=== PATIENT | male | born 1970 | race Hispanic/Latino ===

== ENCOUNTER 2018-09-17 04:12 | Observation (INO) | payer BC ==
--- NOTE | 2018-09-17 04:38 | EDPHYS ---
Physician Documentation [facility] Name: Fantasma Cobb Age: 47 yrs Sex: Male : 1970 Arrival Date: 09/17/2018 Time: 04:15 Bed 5 Private MD: Moisés Menjivar ED Physician Lawrence Hall HPI: 09/17 04:32 This 47 yrs old Male presents to ER via Ambulatory with complaints of High bob Blood Sugar, Chest Tightness, Headache, LT side of body hurt. 04:32 The patient or guardian reports hyperglycemia. bob Historical: - Allergies: 04:37 No Known Allergies; fc - Home Meds: 04:37 amlodipine 5 mg tab 1 tab once daily [Active]; aspirin 81 mg Oral TbEC 1 tab once daily fc [Active]; lisinopril 10 mg Oral tab 1 tab once daily [Active]; Victoza 2-Javier 0.6 mg/0.1 mL (18 mg/3 mL) subcutaneous pnij 0.3 mL once daily [Active]; Tresiba FlexTouch U-100 100 unit/mL (3 mL) subcutaneous inpn daily [Active]; - PMHx: 04:37 Kidney stones; Diabetes - IDDM; Hypertension; Bacterial Pneumonia; fc - PSHx: 04:37 Cholecystectomy; top left lung lobectomy; Lithotripsy; Renal Stents; fc - Immunization history:: Last tetanus immunization: unknown, Flu vaccine is not up to date. - Social history:: Smoking status: Patient/guardian denies using tobacco, Patient/guardian denies using alcohol, street drugs. - Ebola Screening: : Patient negative for fever greater than or equal to 101.5 degrees Fahrenheit, and additional compatible Ebola Virus Disease symptoms Patient denies exposure to infectious person Patient denies travel to an Ebola-affected area in the 21 days before illness onset. ROS: 04:33 Constitutional: Negative for fever, chills, and weight loss, Eyes: Negative for injury, bob pain, redness, and discharge, ENT: Negative for injury, pain, and discharge, Neck: Negative for injury, pain, and swelling, Respiratory: Negative for shortness of breath, cough, wheezing, and pleuritic chest pain, Abdomen/GI: Negative for abdominal pain, nausea, vomiting, diarrhea, and constipation, Back: Negative for injury and pain, : Negative for injury, bleeding, discharge, and swelling, MS/Extremity: Negative for injury and deformity, Skin: Negative for injury, rash, and discoloration, Psych: Negative for depression, anxiety, suicide ideation, homicidal ideation, and hallucinations, Allergy/Immunology: Negative for hives, rash, and allergies, Endocrine: Negative for neck swelling, polydipsia, polyuria, polyphagia, and marked weight changes, Hematologic/Lymphatic: Negative for swollen nodes, abnormal bleeding, and unusual bruising. 04:33 Cardiovascular: Positive for chest pain. 04:33 Neuro: Positive for headache. Exam: 04:33 Constitutional: This is a well developed, well nourished patient who is awake, alert, bob and in no acute distress. Head/Face: Normocephalic, atraumatic. Eyes: Pupils equal round and reactive to light, extra-ocular motions intact. Lids and lashes normal. Conjunctiva and sclera are non-icteric and not injected. Cornea within normal limits. Periorbital areas with no swelling, redness, or edema. ENT: Nares patent. No nasal discharge, no septal abnormalities noted. Tympanic membranes are normal and external auditory canals are clear. Oropharynx with no redness, swelling, or masses, exudates, or evidence of obstruction, uvula midline. Mucous membranes moist. Neck: Trachea midline, no thyromegaly or masses palpated, and no cervical lymphadenopathy. Supple, full range of motion without nuchal rigidity, or vertebral point tenderness. No Meningismus. Chest/axilla: Normal chest wall appearance and motion. Nontender with no deformity. No lesions are appreciated. Cardiovascular: Regular rate and rhythm with a normal S1 and S2. No gallops, murmurs, or rubs. Normal PMI, no JVD. No pulse deficits. Respiratory: Lungs have equal breath sounds bilaterally, clear to auscultation and percussion. No rales, rhonchi or wheezes noted. No increased work of breathing, no retractions or nasal flaring. Abdomen/GI: Soft, non-tender, with normal bowel sounds. No distension or tympany. No guarding or rebound. No evidence of tenderness throughout. Back: No spinal tenderness. No costovertebral tenderness. Full range of motion. Male : Normal genitalia with no discharge or lesions. Skin: Warm, dry with normal turgor. Normal color with no rashes, no lesions, and no evidence of cellulitis. MS/ Extremity: Pulses equal, no cyanosis. Neurovascular intact. Full, normal range of motion. Neuro: Awake and alert, GCS 15, oriented to person, place, time, and situation. Cranial nerves II-XII grossly intact. Motor strength 5/5 in all extremities. Sensory grossly intact. Cerebellar exam normal. Normal gait. Psych: Awake, alert, with orientation to person, place and time. Behavior, mood, and affect are within normal limits. Vital Signs: 04:15 BP 170 / 97; Pulse 97; Resp 18; Temp 98.7(O); Pulse Ox 94% on R/A; Weight 99.79 kg (R); Height 5 ft. 11 in. (180.34 cm) (R); Pain 10/10; 05:50 BP 149 / 90; Pulse 80; Resp 18; Pulse Ox 98% on R/A; ea 07:43 BP 159 / 93; Pulse 81; Resp 18; Temp 98.2; Pulse Ox 97% on R/A; ph 04:15 Body Mass Index 30.68 (99.79 kg, 180.34 cm) NIH Stroke Scale Scores: 04:33 NIHSS Score: 0 bob MDM: 04:24 Patient medically screened. bob 04:35 Data reviewed: vital signs, nurses notes, lab test result(s), EKG, radiologic studies, [facility] CT scan, plain films. 09/17 04:31 Order name: Basic Metabolic Panel; Complete Time: 05:41 [facility] 09/17 04:31 Order name: CBC with Diff; Complete Time: 05:41 [facility] 09/17 04:31 Order name: LFT's; Complete Time: 05:41 [facility] 09/17 04:31 Order name: Magnesium; Complete Time: 05:41 [facility] 09/17 04:31 Order name: NT PRO-BNP; Complete Time: 05:41 [facility] 09/17 04:31 Order name: PT-INR; Complete Time: 05:41 [facility] 09/17 04:31 Order name: Troponin (emerg Dept Use Only); Complete Time: 05:41 [facility] 09/17 04:31 Order name: XRAY Chest (1 view) [facility] 09/17 04:31 Order name: Lipase; Complete Time: 05:41 [facility] 09/17 04:31 Order name: CT Head Brain wo Cont [facility] 09/17 06:10 Order name: Urine Dipstick--Ancillary (enter results) 09/17 06:18 Order name: Urine Dipstick-Ancillary; Complete Time: 06:43 [facility] 09/17 04:31 Order name: EKG; Complete Time: 04:32 [facility] 09/17 04:31 Order name: Cardiac monitoring; Complete Time: 04:45 [facility] 09/17 04:31 Order name: EKG - Nurse/Tech; Complete Time: 04:45 [facility] 09/17 04:31 Order name: IV Saline Lock; Complete Time: 04:45 [facility] 09/17 04:31 Order name: Labs collected and sent; Complete Time: 04:45 [facility] 09/17 04:31 Order name: O2 Per Protocol; Complete Time: 04:45 [facility] 09/17 04:31 Order name: O2 Sat Monitoring; Complete Time: 04:45 [facility] 09/17 04:31 Order name: Urine Dipstick-Ancillary (obtain specimen); Complete Time: 06:08 [facility] 09/17 04:43 Order name: CONS Physician Consult EDMS Administered Medications: 04:50 Drug: NS 0.9% 1000 ml Route: IV; Rate: 1 bolus; Site: right antecubital; ea 06:11 Follow up: Response: No adverse reaction; IV Status: Completed infusion; IV Intake: ea 1000ml 04:50 Drug: Zofran 4 mg Route: IVP; Site: right antecubital; ea 06:07 Follow up: Response: No adverse reaction; Marked relief of symptoms ea 04:50 Drug: Lovenox 1 mg/kg Route: Sub-Q; Site: left lower abdomen; ea 06:07 Follow up: Response: No adverse reaction ea 04:55 Drug: morphine 4 mg Route: IVP; Site: right antecubital; ea 06:07 Follow up: Response: No adverse reaction; Pain is decreased ea 04:58 Drug: Aspirin 162 mg Route: PO; ea 06:06 Follow up: Response: No adverse reaction ea 05:00 Drug: Insulin Regular Human 10 units {Co-Signature: [email or web address] (Neeraj Thurman RN).} Route: ea Sub-Q; Site: right upper arm; 06:53 Follow up: Response: No adverse reaction ea 06:39 Drug: Tylenol 1000 mg Route: PO; ea 06:55 Follow up: Response: No adverse reaction; Pain is decreased ea 07:49 Drug: Rocephin - (cefTRIAXone) 1 grams Route: IVPB; Infused Over: 30 mins; Site: right ph antecubital; 07:50 Follow up: Response: No adverse reaction; IV Status: Completed infusion ph Point of Care Testing: Blood Glucose: 06:53 Blood Glucose: 264 mg/dL; ea Ranges: Critical Glucose Levels:Adult <50 mg/dl or >400 mg/dl <40 mg/dl or >180 mg/dl Disposition: 09/17/18 04:37 Hospitalization ordered by Rosa Sanchez for Observation. Preliminary diagnosis are Essential (primary) hypertension, Type 1 diabetes mellitus, Other chest pain, Chronic sinusitis. - Bed requested for Telemetry/MedSurg (observation). - Status is Observation. ph - Condition is Stable. - Problem is new. - Symptoms have improved. UTI on Admission? No NIH Stroke Scale - NIH Stroke Score Date: 09/17/2018 Time: 04:33 Total Score = 0 1a. Level of Consciousness (LOC) - 0(Alert) 1b. Level of Consciousness (LOC) (Year \T\ Age) - 0(Both) 1c. LOC Commands (Open \T\ Closes Eyes/Director Of Blood) - 0(Both) 2. Best Gaze (Lateral Gaze Paresis) - 0(Normal) 3. Visual Field Loss - 0(No visual loss) 4. Facial Palsy - 0(Normal) 5a. Left Arm: Motor (10-second hold) - 0(No drift) 5b. Right Arm: Motor (10-second hold) - 0(No drift) 6a. Left Leg: Motor (5-second hold - always test supine) - 0(No drift) 6b. Right Leg: Motor (5-second hold - always test supine) - 0(No drift) 7. Limb Ataxia (finger/nose \T\ heel/burton - test with eyes open) - 0(Absent) 8. Sensory Loss (pinprick arms/legs/face) - 0(Normal) 9. Best Language: Aphasia (description/naming/reading) - 0(No aphasia) 10. Dysarthria (speech clarity - read or repeat words) - 0(Normal) 11. Extinction and Inattention (visual/tactile/auditory/spatial/personal) - 0(No abnormality) Initials: bob Signatures: Dispatcher [employer] EDEliza Martinez RN Lawrence Mandujano MD MD cha Chretien, Felicia RN Jaclyn De La Cruz RN RN ph Antunez, Elena RN PHI Thurman RN [email or web address] Corrections: (The following items were deleted from the chart) 05:57 04:37 Hospitalization Ordered by Rosa Sanchez MD for Observation. Preliminary diagnosis is Essential (primary) hypertension; Type 1 diabetes mellitus; Other chest pain. Bed requested for Telemetry/MedSurg (observation). Status is Observation. Condition is Stable. Problem is new. Symptoms have improved. UTI on Admission? No. bob 06:46 05:57 09/17/2018 04:37 Hospitalization Ordered by Rosa Sanchez MD for bob Observation. Preliminary diagnosis is Essential (primary) hypertension; Type 1 diabetes mellitus; Other chest pain. Bed requested for Telemetry/MedSurg (observation). Status is Observation. Condition is Stable. Problem is new. Symptoms have improved. UTI on Admission? No. kl 08:06 06:46 09/17/2018 04:37 Hospitalization Ordered by Rosa Sanchez MD for Observation. Preliminary diagnosis is Essential (primary) hypertension; Type 1 diabetes mellitus; Other chest pain; Chronic sinusitis. Bed requested for Telemetry/MedSurg (observation). Status is Observation. Condition is Stable. Problem is new. Symptoms have improved. UTI on Admission? No. bob
--- NOTE | 2018-09-17 04:38 | ER ---
Nurse's Notes [facility] Name: Fantasma Cobb Age: 47 yrs Sex: Male : 1970 Arrival Date: 09/17/2018 Time: 04:15 Bed 5 Private MD: Moisés Menjivar Diagnosis: Essential (primary) hypertension;Type 1 diabetes mellitus;Other chest pain;Chronic sinusitis Presentation: 09/17 04:15 Presenting complaint: Patient states: that he woke up with sever pain to his entire body along with headache, chest tightness and high blood sugar of 393. States that now the pain is mostly on the left side. Denies any shortness of breath. Transition of care: patient was not received from another setting of care. Onset of symptoms was September 17, 2018 at 02:30. Risk Assessment: Do you want to hurt yourself or someone else? Patient reports no desire to harm self or others. Initial Sepsis Screen: Does the patient meet any 2 criteria? HR > 90 bpm. Yes Does the patient have a suspected source of infection? No. Patient's initial sepsis screen is negative. Care prior to arrival: None. 04:15 Method Of Arrival: Ambulatory 04:15 Acuity: INGRID 3 fc Historical: - Allergies: 04:37 No Known Allergies; fc - Home Meds: 04:37 amlodipine 5 mg tab 1 tab once daily [Active]; aspirin 81 mg Oral TbEC 1 tab once daily fc [Active]; lisinopril 10 mg Oral tab 1 tab once daily [Active]; Victoza 2-Javier 0.6 mg/0.1 mL (18 mg/3 mL) subcutaneous pnij 0.3 mL once daily [Active]; Tresiba FlexTouch U-100 100 unit/mL (3 mL) subcutaneous inpn daily [Active]; - PMHx: 04:37 Kidney stones; Diabetes - IDDM; Hypertension; Bacterial Pneumonia; fc - PSHx: 04:37 Cholecystectomy; top left lung lobectomy; Lithotripsy; Renal Stents; fc - Immunization history:: Last tetanus immunization: unknown, Flu vaccine is not up to date. - Social history:: Smoking status: Patient/guardian denies using tobacco, Patient/guardian denies using alcohol, street drugs. - Ebola Screening: : Patient negative for fever greater than or equal to 101.5 degrees Fahrenheit, and additional compatible Ebola Virus Disease symptoms Patient denies exposure to infectious person Patient denies travel to an Ebola-affected area in the 21 days before illness onset. Screenin:32 Abuse screen: Denies threats or abuse. Nutritional screening: No deficits noted. fc Tuberculosis screening: No symptoms or risk factors identified. Fall Risk None identified. Assessment: 04:50 General: Appears uncomfortable, Behavior is calm, cooperative, appropriate for age. ea Pain: Complains of pain in chest Pain currently is 9 out of 10 on a pain scale. Quality of pain is described as aching, Pain began 1 hour ago. Neuro: Level of Consciousness is awake, alert, obeys commands, Oriented to person, place, time, situation. Cardiovascular: Heart tones S1 S2 present Patient's skin is warm and dry. Respiratory: Airway is patent Respiratory effort is even, unlabored, Respiratory pattern is regular, symmetrical, Breath sounds are clear bilaterally. Derm: Skin is pink, warm \T\ dry. 04:50 Pain: Complains of pain in headache Pain does not radiate. Pain currently is 9 out of ea 10 on a pain scale. 05:50 Reassessment: Patient and/or family updated on plan of care and expected duration. Pain ea level reassessed. Patient is alert, oriented x 3, equal unlabored respirations, skin warm/dry/pink. 07:00 Reassessment: Patient appears in no apparent distress at this time. Patient and/or ph family updated on plan of care and expected duration. Pain level reassessed. Patient is alert, oriented x 3, equal unlabored respirations, skin warm/dry/pink. 08:00 Reassessment: Patient appears in no apparent distress at this time. Patient and/or ph family updated on plan of care and expected duration. Pain level reassessed. Patient is alert, oriented x 3, equal unlabored respirations, skin warm/dry/pink. Pt reports hat headache is improving, report called to 4th floor, pt taken to room via wheelchair. Vital Signs: 04:15 BP 170 / 97; Pulse 97; Resp 18; Temp 98.7(O); Pulse Ox 94% on R/A; Weight 99.79 kg (R); fc Height 5 ft. 11 in. (180.34 cm) (R); Pain 10/10; 05:50 BP 149 / 90; Pulse 80; Resp 18; Pulse Ox 98% on R/A; ea 07:43 BP 159 / 93; Pulse 81; Resp 18; Temp 98.2; Pulse Ox 97% on R/A; ph 04:15 Body Mass Index 30.68 (99.79 kg, 180.34 cm) fc NIH Stroke Scale Scores: 04:33 NIHSS Score: 0 [facility] ED Course: 04:15 Patient arrived in ED. es 04:15 Moisés Menjivar MD is Private Physician. es 04:15 Arm band placed on Patient placed in an exam room, on a stretcher, on cardiac care unit nurse, fc on pulse oximetry. 04:15 Patient has correct armband on for positive identification. Placed in gown. Bed in low fc position. Call light in reach. satellite project site monitor on. Pulse ox on. NIBP on. 04:15 No provider procedures requiring assistance completed. Patient maintains SpO2 fc saturation greater than 95% on room air. 04:24 Lawrence Hall MD is Attending Physician. bob 04:30 Inserted saline lock: 20 gauge in right antecubital area, using aseptic technique. ea Blood collected. 04:31 Triage completed. fc 04:35 Rosa Sanchez MD is Hospitalizing Provider. bob 04:44 Angelika Felix RN is Primary Nurse. ea 05:[address] via wheelchair. kw1 05:23 X-ray completed. Portable x-ray completed in exam room. Patient tolerated procedure kw well. 05:25 Notified ED physician of a critical lab result(s). Glucose 426. fc 05:26 CT completed. Patient tolerated procedure well. Patient moved back from CT. kw1 06:03 Patient admitted, IV remains in place. ea Administered Medications: 04:50 Drug: NS 0.9% 1000 ml Route: IV; Rate: 1 bolus; Site: right antecubital; ea 06:11 Follow up: Response: No adverse reaction; IV Status: Completed infusion; IV Intake: ea 1000ml 04:50 Drug: Zofran 4 mg Route: IVP; Site: right antecubital; ea 06:07 Follow up: Response: No adverse reaction; Marked relief of symptoms ea 04:50 Drug: Lovenox 1 mg/kg Route: Sub-Q; Site: left lower abdomen; ea 06:07 Follow up: Response: No adverse reaction ea 04:55 Drug: morphine 4 mg Route: IVP; Site: right antecubital; ea 06:07 Follow up: Response: No adverse reaction; Pain is decreased ea 04:58 Drug: Aspirin 162 mg Route: PO; ea 06:06 Follow up: Response: No adverse reaction ea 05:00 Drug: Insulin Regular Human 10 units {Co-Signature: jd3 (Neeraj Thurman RN).} Route: ea Sub-Q; Site: right upper arm; 06:53 Follow up: Response: No adverse reaction ea 06:39 Drug: Tylenol 1000 mg Route: PO; ea 06:55 Follow up: Response: No adverse reaction; Pain is decreased ea 07:49 Drug: Rocephin - (cefTRIAXone) 1 grams Route: IVPB; Infused Over: 30 mins; Site: right ph antecubital; 07:50 Follow up: Response: No adverse reaction; IV Status: Completed infusion ph Point of Care Testing: Blood Glucose: 06:53 Blood Glucose: 264 mg/dL; ea Ranges: Intake: 06:11 IV: 1000ml; Total: 1000ml. ea Outcome: 04:37 Decision to Hospitalize by Provider. bob 06:03 Instructed on the need for admit. ea 07:51 Condition: stable ph 08:00 Admitted to Tele accompanied by tech, via wheelchair, room 413, with chart. ph 08:06 Patient left the ED. ph NIH Stroke Scale - NIH Stroke Score Date: 09/17/2018 Time: 04:33 Total Score = 0 1a. Level of Consciousness (LOC) - 0(Alert) 1b. Level of Consciousness (LOC) (Year \T\ Age) - 0(Both) 1c. LOC Commands (Open \T\ Closes Eyes/[employer]) - 0(Both) 2. Best Gaze (Lateral Gaze Paresis) - 0(Normal) 3. Visual Field Loss - 0(No visual loss) 4. Facial Palsy - 0(Normal) 5a. Left Arm: Motor (10-second hold) - 0(No drift) 5b. Right Arm: Motor (10-second hold) - 0(No drift) 6a. Left Leg: Motor (5-second hold - always test supine) - 0(No drift) 6b. Right Leg: Motor (5-second hold - always test supine) - 0(No drift) 7. Limb Ataxia (finger/nose \T\ heel/burton - test with eyes open) - 0(Absent) 8. Sensory Loss (pinprick arms/legs/face) - 0(Normal) 9. Best Language: Aphasia (description/naming/reading) - 0(No aphasia) 10. Dysarthria (speech clarity - read or repeat words) - 0(Normal) 11. Extinction and Inattention (visual/tactile/auditory/spatial/personal) - 0(No abnormality) Initials: bob Signatures: Lawrence Hall MD MD cha Salyer, Edna es Chretien, Felicia, RN RN Bree Shaw Patricia, RN RN Angelika Felix RN Eliza Spain ea kw Neeraj Thurman RN jd3
[2018-09-17] MEDS ORDERED: D50W 25 GM/50 ML SYRINGE IV PRN (04:42)
[2018-09-17] MEDS ORDERED: GLUCAGON 1 MG/VIAL IM PRN (04:42)
[2018-09-17] MEDS ORDERED: ASPIRIN 81 MG CHEWABLE TABLET ONE (04:55)
[2018-09-17] MEDS ORDERED: ENOXAPARIN 100 MG/ML SYR SQ ONE (04:56)
[2018-09-17] MEDS ORDERED: ONDANSETRON 4 MG/2 ML VIAL ONE (04:56)
[2018-09-17] MEDS ORDERED: NA CHLORIDE 0.9% 1,000 ML ONE (04:56)
[2018-09-17] MEDS ORDERED: MORPHINE 4 MG/ML SYR ONE (04:56)
[2018-09-17 04:57] LABS: Absolute Lymphocytes (CBC) 2.7 K/uL (0.7-4.9); Absolute Monocytes 0.5 K/uL (0.1-1.3); Absolute Neutrophil 4.1 K/uL (1.8-8.0); Basophils % 0.6 % (0-1.3); Eosinophils % 3.2 % (0-4.4); Hematocrit 49.2 % (39.6-49.0); Lymphocytes % 35.5 % (15.3-44.8); MCH 28.8 pg (27.0-35.0); MCV 84.6 fL (80-100); MPV 10.7 fL (7.6-11.3); Monocytes % 7.1 % (3.3-12.3); Protime INR 0.99; RBC Red Blood Cell Count 5.82 M/uL (4.33-5.43)
[2018-09-17] MEDS ORDERED: INSULIN -REGULAR HUMAN 50 UNIT/0.5 ML ML ONE (05:07)
[2018-09-17 05:24] LABS: ALT/SGPT 36 U/L (12-78); AST/SGOT 22 U/L (15-37); Albumin 3.8 g/dL (3.4-5.0); Alkaline Phosphatase 112 U/L (45-117); BUN Blood Urea Nitrogen 15 mg/dL (7-18); Bicarbonate 23 mmol/L (21-32); Bilirubin Direct < 0.1 mg/dL (0-0.2); Bilirubin Total 0.4 mg/dL (0.2-1.0); Lipase 151 U/L (73-393); Magnesium 2.1 mg/dL (1.8-2.4); NT PRO-BNP 8 pg/mL (<125); Potassium 4.1 mmol/L (3.5-5.1); Protein, Total 7.9 g/dL (6.4-8.2); Sodium Level 135 mmol/L (136-145); Troponin (Emerg Dept Use Only) < 0.02 ng/mL (0.0-0.045)
[2018-09-17 05:25] LABS: Glucose Level 426 mg/dL (74-106)
[2018-09-17] MEDS ORDERED: MORPHINE 4 MG/ML SYR IV PRN (06:02)
[2018-09-17] MEDS ORDERED: ALPRAZOLAM 0.25 MG TABLET PO PRN (06:02)
[2018-09-17 06:18] LABS: Urine Blood NEGATIVE (NEG); Urine Glucose 2+ (NEG); Urine Protein NEGATIVE (NEG)
[2018-09-17] MEDS ORDERED: ACETAMINOPHEN 500 MG TAB ONE (06:41)
[2018-09-17] MEDS ORDERED: CEFTRIAXONE/SWI 1gm 1 GM/10 ML SYR ONE (07:53)
--- NOTE | 2018-09-17 08:38 | P.HP ---
Certification for Inpatient Patient admitted to: Observation With expected LOS: <2 Midnights Patient will require the following post-hospital care: None Practitioner: I am a practitioner with admitting privileges, knowledge of patient current condition, hospital course, and medical plan of care. Services: Services provided to patient in accordance with Admission requirements found in Title 42 Section 412.3 of the Code of Federal Regulations Patient History Date of Service: 09/17/18 Reason for admission: Chest pain rule out acute coronary syndrome/poorly- controlled diabetes History of Present Illness: Patient is a 47-year-old gentleman who came into the hospital after waking up with diffuse pain. He states he was hurting all over but mainly in the sternal region. His blood sugars a been poorly controlled for many months. Patient is in the process of getting an insulin pump. His blood sugars have remained in the 3-400 range. He states that his A1c was greater than 14. It does not appear that he takes care of himself whatsoever. Patient will be admitted to the hospital to be ruled out for an acute coronary syndrome. He denies any shortness of breath at this time. He denies any vomiting but he does have some nausea. There was no diaphoresis. Patient will be admitted to be ruled out for acute coronary syndrome. Allergies No Known Drug Allergies Allergy (Verified 02/25/17 14:34) Unknown No Known Allergies Allergy (Uncoded 02/25/17 14:43) Unknown Home Medications: Aspirin 81 mg PO DAILY #0 tab.chew 09/12/12 Lisinopril [Prinivil*] 20 mg PO DAILY WITH BREAKFAST 08/17/13 Rosuvastatin [Crestor*] 20 mg PO BEDTIME 08/17/13 Allopurinol 1 tab PO DAILY 02/25/17 Amlodipine Besylate 1 tab PO DAILY 02/25/17 Dulaglutide [Trulicity] 1.5 mg SQ SEECOM 02/25/17 Insulin Lispro Protamin/Lispro [Humalog Mix 75-25 Kwikpen] 30 units PO LUNCH Insulin Lispro Protamin/Lispro [Humalog Mix 75-25 Kwikpen] 60 units SQ DAILY AT SUPPER 02/25/17 Insulin Lispro Protamin/Lispro [Humalog Mix 75-25 Kwikpen] 60 units SQ DAILY WITH BREAKFAST 02/25/17 Metformin ER [Glucophage ER*] 1,000 mg PO BID 02/25/17 Potassium Citrate [Potassium Citrate ER] 1 tab PO BID 02/25/17 Ondansetron [Zofran] 4 mg PO Q6H PRN #20 tab 02/26/17 - Past Medical/Surgical History Diabetic: Yes -: DM-NIDDM -: HTN -: HYPERLIPIDEMIA -: KIDNEY STONES -: CHOLECYSTECTOMY -: TOP LEFT LUNG LOBECTOMY -: LITHOTRIPSY -: RENAL STENT - Family History Mother Medical History: Diabetes Father Medical History: Diabetes - Social History Alcohol use: Yes CD- Drugs: No Caffeine use: Yes Review of Systems 10-point ROS is otherwise unremarkable Physical Examination - Vital Signs Temperature: 98.2 F Blood Pressure: 159/93 Pulse: 81 Respirations: 18 Pulse Ox (%): 96 - Physical Exam General: Alert, In no apparent distress, Oriented x3 HEENT: Atraumatic, PERRLA, Mucous membr. moist/pink, EOMI, Sclerae nonicteric Neck: Supple, 2+ carotid pulse no bruit, No LAD, Without JVD or thyroid abnormality Respiratory: Clear to auscultation bilaterally, Normal air movement Cardiovascular: Regular rate/rhythm, Normal S1 S2, No murmurs Gastrointestinal: Normal bowel sounds, Soft and benign, Non-distended, No tenderness Musculoskeletal: No clubbing, No swelling, No contractures, No tenderness Integumentary: No rashes Neurological: Normal gait, Normal speech, Normal strength at 5/5 x4 extr, Normal tone, Sensation intact, Cranial nerves 3-12 intact, Normal affect Lymphatics: No axilla or inguinal lymphadenopathy - Studies Laboratory Data (last 24 hrs) 09/17/18 04:35: PT 11.7, INR 0.99 09/17/18 04:35: WBC 7.7, Hgb 16.8, Hct 49.2 H, Plt Count 246 09/17/18 04:35: Sodium 135 L, Potassium 4.1, BUN 15, Creatinine 1.10, Glucose 426 H*, Magnesium 2.1, Total Bilirubin 0.4, AST 22, ALT 36, Alkaline Phosphatase 112, Lipase 151 Assessment & Plan - Problems (Diagnosis) (1) Chest pain, rule out acute myocardial infarction Current Visit: Yes Status: Acute (2) Poorly controlled diabetes mellitus Current Visit: Yes Status: Acute (3) Generalized pain Current Visit: Yes Status: Acute (4) HTN (hypertension) Current Visit: No Status: Acute Qualifiers: Hypertension type: essential hypertension Qualified Code(s): I10 - Essential (primary) hypertension - Plan 1. Serial troponins and EKG 2. Cardiology consultation 3. Echocardiogram and further diagnostic studies per Cardiology 4. Anti-platelet therapy, anti coagulation, beta-imani, statin, and O2 as needed 5. IV morphine for pain 6. Check hemoglobin A1c and strict blood sugar control 7. IV hydration 8. GI and DVT prophylaxis Discharge Plan: Home Plan to discharge in: Greater than 2 days - Advance Directives Does patient have a Living Will: No Does patient have a Durable POA for Healthcare: No - Code Status/Comfort Care Code Status Assessed: Yes Code Status: Full Code Critical Care: No Time Spent Managing PTS Care (In Minutes): 50
--- NOTE | 2018-09-17 08:48 | RAD REPORT ---
EXAM DESCRIPTION: Maryam Single View09/17/2018 5:27 am CLINICAL HISTORY: Chest pain COMPARISON: February 2017 FINDINGS: The lungs appear clear of acute infiltrate. The heart is normal size IMPRESSION: No acute abnormalities displayed
--- NOTE | 2018-09-17 08:59 | RAD REPORT ---
EXAM DESCRIPTION: CT - Head Brain Wo Cont - 09/17/2018 5:57 am CLINICAL HISTORY: Headache COMPARISON: None. TECHNIQUE: Computed axial tomography of the head was obtained. IV contrast was not requested.Prelimi nary report generated by virtual radiologic a review prior to dictation All CT scans are performed using dose optimization technique as appropriate and may include automated exposure control or mA/KV adjustment according to patient size. FINDINGS: An intracranial bleed is not seen . The ventricles are normal in caliber. No extra-axial fluid collection is noted. Fluid within the sinuses/ mastoids is not seen. Mild mucoperiosteal thickening involves the left maxi llary and ethmoid sinus Increased density within the right posterior scalp could be related to inflammation or trauma IMPRESSION: No acute intracranial abnormality is seen. If patient's symptoms persist MRI of the bra in would be recommended. Chronic sinusitis
[2018-09-17] MEDS ORDERED: ASPIRIN EC 81 MG TAB PO SCH (09:00)
[2018-09-17] MEDS: ALLOPURINOL 100 MG TAB PO SCH (09:00)
[2018-09-17] MEDS: ENOXAPARIN 40 MG/0.4 ML SQ SCH (09:00)
[2018-09-17] MEDS: INSULIN -REGULAR HUMAN 50 UNIT/0.5 ML ML SQ SCH ×4 (09:27→21:02)
[2018-09-17] MEDS: HUMALOG MIX 75/25 100 UNITS/ML SQ SCH ×2 (09:27→12:00)
[2018-09-17] MEDS: AMLODIPINE 2.5 MG TAB PO SCH (09:29)
[2018-09-17] MEDS: METOPROLOL TAR 50 MG TAB PO SCH ×2 (09:32→20:55)
[2018-09-17 09:51] VITALS: BMI 30.7
[2018-09-17] MEDS: ACETAMINOPHEN 500 MG TAB PO PRN (11:37)
--- NOTE | 2018-09-17 12:33 | ECHO ---
HEIGHT: 5 ft 11 in WEIGHT: 220 lb 0 oz DATE OF STUDY: 09/17/[address]: Rosa Sanchez MD 2-DIMENSIONAL: YES M.MODE: YES DOPPLER: YES COLOR FLOW: YES TDS: PORTABLE: DEFINITY: BUBBLE STUDY: DIAGNOSIS: CHEST PAIN, RULE OUT ACUTE CORANRY SYNDROME CARDIAC HISTORY: CATHERIZATION: NO SURGERY: NO PROSTHETIC VALVE: NO PACEMAKER: NO MEASUREMENTS (cm) DIASTOLIC (NORMALS) SYSTOLIC (NORMALS) IVSd 0.9 (0.6-1.2) LA Diam 3.4 (1.9-4.0) LVEF 63% LVIDd 3.8 (3.5-5.7) LVIDs 2.5 (2.0-3.5) %FS 33% LVPWd 1.1 (0.6-1.2) Ao Diam 2.9 (2.0-3.7) 2 DIMENSIONAL ASSESSMENT: RIGHT ATRIUM: NORMAL LEFT ATRIUM: NORMAL RIGHT VENTRICLE: NORMAL LEFT VENTRICLE: NORMAL TRICUSPID VALVE: NORMAL MITRAL VALVE: NORMAL PULMONIC VALVE: NORMAL AORTIC VALVE: NORMAL PERICARDIAL EFFUSION: NONE AORTIC ROOT: NORMAL LEFT VENTRICULAR WALL MOTION: NORMAL DOPPLER/COLOR FLOW: NORMAL COMMENTS: NORMAL 2-DIMENSIONAL ECHOCARDIOGRAM WITH DOPPLER. TECHNOLOGIST: MIRNA BARRIOS
--- NOTE | 2018-09-17 13:33 | EKG ---
Test Date: 2018-09-17 Test Time: 04:26:44 Home Health Clinical Liaison: ROMEL MEASUREMENT RESULTS: Intervals: Rate: 98 TN: 144 QRSD: 84 QT: 350 QTc: 446 [place]: P: 41 TN: 144 QRS: 2 T: 4 INTERPRETIVE STATEMENTS: Normal sinus rhythm Inferior infarct, age undetermined Abnormal ECG Electronically Signed On 09-17-18 13:33:06 PRODUCT SAFETY CONSULTANT by Zander Tidwell
--- NOTE | 2018-09-17 13:34 | TREADMILL ---
70% H.R.: 120 85% H.R.: 145 90% H.R.: 154 100% H.R.: 171 DX: CHEST PAIN Date of Study: 09/17/2018 Ht: 5 11 Wt: 220 lb 0 oz Consulting Physician: ANDRÉS MEDICATIONS: TYLENOL, ZYLOPRIM, XANAX, NORVASC, ASPIRIN, DEXTROSE, LOVENOX, GLUCAGEN, HUMALOG, LOPRESSOR, CRESTOR HISTORY: 47 YEAR OLD MALE WITH COMPLAINTS OF CHEST PAIN. MEDICAL HISTORY OF HYPERTENSION, DIABETES MELLITUS, KIDNEY STONES AND RENAL STENTS. PHYSICIAL EXAMINATION: RESTING B.P.: 146/89 RESTING H.R.: 82 RESTING EKG: POOR R WAVE PROGRESSION. PROTOCOL: JUSTO ROUTINE EXERCISE TIME: 9:48 MAXIMUM HEART RATE: 151 88 % OF PREDICTED B.P. AT PEAK STRESS: 183/97 H.R. AT 1 MINUTE POST EXERCISE: 129 IMPRESSION: STRESS TEST STOPPED DUE TO TARGET HEART RATE REACHED AND PATIENT FATIGUE PER PROTOCOL. NO SUPRAVENTRICULAR OR VENTRICULAR TACHYCARDIA. ONE PREMATURE VENTRICULAR COMPLEX. DENIED CHEST PAIN. NO ST DEPRESSION WITH STRESS.
[2018-09-17] MEDS ORDERED: ONDANSETRON 4 MG/2 ML VIAL IV PRN (16:03)
--- NOTE | 2018-09-17 16:41 | CON ---
Attending Physician: Dr. Sanchez Chief Complaint: Chest pain. History Of Present Illness: The patient went to sleep, feeling fine. He awakened at 3. He was hunc hed over in a very uncomfortable position, felt pain little bit everywhere including the chest, now i t is possibly gone away. Apparently, the patient has a sleep disturbance where he sleeps poorly, alw ays feels tired and often awakens in uncomfortable positions, but this is the first time it may hurt so much since he has been in the hospital. Cardiac enzymes are normal. He has wildly uncontrolled b lood sugar, it was 426 on admission. He uses no tobacco. No illegal drugs. Does not have any exerc ise program. He does not think he does a very good job controlling his diabetes. He does not contri bute much in the way of trying with diet and exercise. Outpatient Medications: Aspirin, lisinopril, Crestor, amlodipine, insulin, and liraglutide or Victoz a. Physical Examination: Vital signs: 5 feet 11 inches, 220 pounds. HEENT: Normal. Lungs: Clear. Heart: Within normal limits. Abdomen: Soft. Extremities: Normal. Laboratory Data: A nuclear stress test several years ago was normal. He has not had any followup [facility] since then. Recommendation: We will do a routine stress test and an echo. We will get some idea whether this is an unstable coronary heart disease or not. We are unable to do a nuclear stress test anytime within the next few days or weeks even so we will see what we learn from doing a routine stress test and echo. EDWIGE Voice ID: [id number] Report ID: [id number]
[2018-09-17] MEDS ORDERED: HUMALOG MIX 75/25 100 UNITS/ML SQ SCH (17:00)
[2018-09-17] MEDS: LORATADINE 10 MG TAB PO PRN (17:05)
[2018-09-17] MEDS ORDERED: ROSUVASTATIN 10 MG TAB PO SCH (21:00)
[2018-09-18 06:01] LABS: Absolute Lymphocytes (CBC) 2.6 K/uL (0.7-4.9); Absolute Monocytes 0.6 K/uL (0.1-1.3); Basophils % 0.9 % (0-1.3); Eosinophils % 3.7 % (0-4.4); Hematocrit 45.1 % (39.6-49.0); Lymphocytes % 34.6 % (15.3-44.8); MCH 28.6 pg (27.0-35.0); MCV 85.4 fL (80-100); MPV 10.2 fL (7.6-11.3); Monocytes % 8.1 % (3.3-12.3); RBC Red Blood Cell Count 5.28 M/uL (4.33-5.43)
[2018-09-18 06:47] LABS: BUN Blood Urea Nitrogen 14 mg/dL (7-18); Bicarbonate 29 mmol/L (21-32); Glucose Level 239 mg/dL (74-106); HDL Cholesterol 33 mg/dL (40-60); LDL Cholesterol, Calculated ND (<130); Potassium 4.3 mmol/L (3.5-5.1); Sodium Level 139 mmol/L (136-145)
[2018-09-18 06:54] LABS: Blood Morphology Comment NOT SEEN (NOT SEEN); Platelet Estimate ADEQ; Urine White Blood Cell Casts OK
[2018-09-18 07:02] LABS: LDL, Direct 137 mg/dL (100-129)
[2018-09-18] MEDS ORDERED: LISINOPRIL 20 MG TAB PO SCH (08:00)
[2018-09-18] MEDS: INSULIN -REGULAR HUMAN 50 UNIT/0.5 ML ML SQ SCH ×2 (08:44→12:02)
[2018-09-18] MEDS: HUMALOG MIX 75/25 100 UNITS/ML SQ SCH ×2 (08:45→12:00)
[2018-09-18] MEDS: ALLOPURINOL 100 MG TAB PO SCH ×2 (08:46→08:49)
[2018-09-18] MEDS: AMLODIPINE 2.5 MG TAB PO SCH (08:46)
[2018-09-18] MEDS: METOPROLOL TAR 50 MG TAB PO SCH (08:46)
[2018-09-18] MEDS: ENOXAPARIN 40 MG/0.4 ML SQ SCH (08:46)
[2018-09-18] MEDS: LORATADINE 10 MG TAB PO PRN (08:57)
[2018-09-18] MEDS: ACETAMINOPHEN 500 MG TAB PO PRN (08:57)
[2018-09-18] MEDS ORDERED: ASPIRIN 81 MG CHEWABLE TABLET PO SCH (09:00)
[2018-09-18 12:23] VITALS: O2SAT 98
[2018-09-18 12:38] VITALS: BP 120/68; TEMP 97.7
--- NOTE | 2018-09-18 13:09 | P.SSS ---
Patient History Date of Service: 09/18/18 Reason for admission: Chest pain rule out acute coronary syndrome/poorly- controlled diabetes History of Present Illness: Patient is a 47-year-old gentleman who came into the hospital after waking up with diffuse pain. He states he was hurting all over but mainly in the sternal region. His blood sugars a been poorly controlled for many months. Patient is in the process of getting an insulin pump. His blood sugars have remained in the 3-400 range. He states that his A1c was greater than 14. It does not appear that he takes care of himself whatsoever. Patient will be admitted to the hospital to be ruled out for an acute coronary syndrome. He denies any shortness of breath at this time. He denies any vomiting but he does have some nausea. There was no diaphoresis. Patient will be admitted to be ruled out for acute coronary syndrome. Allergies No Known Drug Allergies Allergy (Verified 02/25/17 14:34) Unknown No Known Allergies Allergy (Uncoded 02/25/17 14:43) Unknown Home Medications: Aspirin 81 mg PO DAILY #0 tab.chew 09/12/12 Lisinopril [Prinivil*] 20 mg PO DAILY WITH BREAKFAST 08/17/13 Rosuvastatin [Crestor*] 20 mg PO BEDTIME 08/17/13 Amlodipine Besylate 1 tab PO DAILY 02/25/17 Insulin Degludec [Tresiba Flextouch U-200] 100 units SQ DAILY 09/17/18 Liraglutide [Victoza 2-Javier] 1.8 mg SQ BEDTIME 09/17/18 Loratadine [Claritin*] 10 mg PO DAILY PRN tab 09/18/18 Metoprolol Tartrate [Lopressor*] 25 mg PO BID #30 tab 09/18/18 - Past Medical/Surgical History Diabetic: Yes -: DM-IDDM -: HTN -: HYPERLIPIDEMIA -: KIDNEY STONES -: CHOLECYSTECTOMY -: TOP LEFT LUNG LOBECTOMY -: LITHOTRIPSY -: RENAL STENT - Family History Mother -: Diabetes Father -: Diabetes - Social History Smoking Status: Former smoker Alcohol use: Yes CD- Drugs: No Caffeine use: Yes Place of Residence: Home Review of Systems As noted above Physical Examination - Vital Signs Temperature: 97.7 F Blood Pressure: 120/68 Pulse: 66 Respirations: 18 Pulse Ox (%): 98 - Physical Exam General: Alert, In no apparent distress, Oriented x3 HEENT: Atraumatic, PERRLA, Mucous membr. moist/pink, EOMI, Sclerae nonicteric Neck: Supple, 2+ carotid pulse no bruit, No LAD, Without JVD or thyroid abnormality Respiratory: Clear to auscultation bilaterally, Normal air movement Cardiovascular: Regular rate/rhythm, Normal S1 S2 Gastrointestinal: Normal bowel sounds, No tenderness Musculoskeletal: No tenderness Integumentary: No rashes Neurological: Normal gait, Normal speech, Normal strength at 5/5 x4 extr, Normal tone, Normal affect Treatment Summary: Patient was admitted to the floor, with tele. Serial troponins were negative and EKG with no specific changes. Cardiology was consulted. Echocardiogram was normal as was his exercise stress test. Patient's pain has resolved. He is to continue aspirin 81 mg, metoprolol 25 mg twice a day, simvastatin along with his NICOLASA-inhibitor, lisinopril on discharge. His diabetes is uncontrolled, with an A1c of 13+. He does have an sketch liner, Dr. Karime Cline inhalant that he is going to be seeing next week for an insulin pump placement, which patient will benefit from greatly. He was discharged in a stable condition. He was discharged with instructions to follow up with his sketch liner in the next week for insulin pump placement and his primary care physician in the next 1 week for followup. Patient verbalized understanding of all instructions and directions. - Disposition Disposition: ROUTINE DISCHARGE Consultations: Cardiology, Dr. Tidwell Patient Discharge Instructions: You admitted for chest pain. Cardiology saw you here in the hospital and conducted exercise stress test, which was normal. Her echocardiogram was normal as well. Please follow up with your primary care physician in the next 1 week. He did have uncontrolled diabetes, with an elevated A1c. Please follow up with the sketch liner in the next 1-2 weeks. Diet: ADA Activity: Ad olamide Physician Review: Patient Assessed, Agree with Above Assessment and Plan Time Spent Managing Pts Care (In Minutes): 55
== END 2018-09-18 15:30 | disposition home or self-care (01) ==
LOC: ER 04:12 → ERHOLD 04:39 → 4TH 08:01
PROVIDERS: ADMIT Hospitalist; ATTEND Hospitalist
DX: R07.9 Chest pain, unspecified (principal); E11.65 Type 2 diabetes mellitus with hyperglycemia; E78.5 Hyperlipidemia, unspecified; I10 Essential (primary) hypertension; Z87.442 Personal history of urinary calculi; Z87.891 Personal history of nicotine dependence; Z79.82 Long term (current) use of aspirin
CPT/HCPCS: 36415; 70450; 71045; 80048; 80061; 80076; 81003; 82962; 83036; 83690; 83735; 83880; 84484; 85025; 85610; 93005; 93017; 93306; 96361; 96372; 96374; 96375; 99285; G0378; J0696; J1650; J2405; J7030

== ENCOUNTER 2020-05-19 13:01 | Observation (INO) | payer BC ==
--- NOTE | 2020-05-19 13:39 | RAD REPORT ---
EXAM DESCRIPTION: CT - Ct Stroke Brain Wo Cont - 05/19/2020 1:27 pm CLINICAL HISTORY: slurred speech Headache, CVA symptomology COMPARISON: Head Brain Wo Cont dated 09/17/2018 TECHNIQUE: All CT scans are performed using dose optimization technique as appropriate and may inclu de automated exposure control or mA/KV adjustment according to patient size. FINDINGS: No intracranial hemorrhage, hydrocephalus or extra-axial fluid collection.Areas of diminis hed density are seen in the right temporoparietal suggesting subacute infarction. The paranasal sinuses and mastoids are clear. The calvarium is intact. IMPRESSION: Poorly defined areas of diminished density is seen right temporoparietal region suggesti ng subacute infarction. No hemorrhagic component. The findings were discussed with Dr. Herron On 05/19/2020 at 1:30 p.m. by telephone.
[2020-05-19] MEDS ORDERED: METOPROLOL TARTRATE 5 MG/5 ML INJ IV ONE (13:48)
[2020-05-19] MEDS ORDERED: ASPIRIN 81 MG CHEWABLE TABLET ONE (13:48)
[2020-05-19] MEDS ORDERED: ONDANSETRON 4 MG/2 ML VIAL ONE (13:50)
[2020-05-19 13:55] LABS: Absolute Lymphocytes (CBC) 2.9 K/uL (0.7-4.9); Basophils % 0.8 % (0-1.3); Hematocrit 47.4 % (39.6-49.0); Lymphocytes % 30.1 % (15.3-44.8); MPV 10.4 fL (7.6-11.3); RBC Red Blood Cell Count 5.79 M/uL (4.33-5.43)
[2020-05-19 14:07] LABS: Potassium 3.6 mmol/L (3.5-5.1); Protime INR 1.05
--- NOTE | 2020-05-19 14:46 | RAD REPORT ---
EXAM DESCRIPTION: RAD - Chest Single View - 05/19/2020 2:07 pm CLINICAL HISTORY: slurred speech Chest pain. COMPARISON: Chest Single View dated 09/17/2018; Chest Single View dated 02/25/2017; ABDOMEN 1 VIEW KUB dated 12/08/2015; ABDOMEN 1 VIEW KUB dated 02/08/2015 FINDINGS: Portable technique limits examination quality. The lungs are underinflated but grossly clear. The heart is normal in size. No displaced fractures. IMPRESSION: Underinflated lungs.
[2020-05-19] MEDS ORDERED: ACETAMINOPHEN 500 MG TAB ONE (15:17)
--- NOTE | 2020-05-19 17:14 | EDPHYS ---
Physician Documentation [facility] Name: Fantasma Cobb Age: 49 yrs Sex: Male : 1970 Arrival Date: 05/19/2020 Time: 13:05 Bed 27 Private MD: Moisés Menjivar ED Physician Fan Herron HPI: 05/20 14:19 This 49 yrs old Male presents to ER via Wheelchair with complaints of Slurred kdr Speech. 14:19 The patient presents to the emergency department with a speech or higher order brain kdr function problem, aphasia, that is mild, left facial asymetry. 15:38 Onset: The symptoms/episode began/occurred suddenly, just prior to arrival. Context: kdr occurred at work, occurred while the patient was sitting. Associated signs and symptoms: Pertinent positives: This patient does not have any pertinent positives. Severity of symptoms: At their worst the symptoms were mild in the emergency department the symptoms have resolved. Patient's baseline: Neuro: alert and fully oriented, Motor: no deficits, Ambulation: walks without assistance, Speech: normal, The patient has a previous history of HTN. Current symptoms: Slight asymmetry of left lower face - forehead spared. The patient has not experienced similar symptoms in the past. The patient has not recently seen a physician. Historical: - Allergies: 05/19 13:20 No Known Allergies; ca1 - Home Meds: 13:20 amlodipine 5 mg tab 1 tab once daily [Active]; aspirin 81 mg Oral TbEC 1 tab once daily ca1 [Active]; lisinopril 10 mg Oral tab 1 tab once daily [Active]; Victoza 2-Javier 0.6 mg/0.1 mL (18 mg/3 mL) subcutaneous pnij 0.3 mL once daily [Active]; Novolog 100 unit/mL Sub-Q soln [Active]; - PMHx: 13:20 BACTERIAL PNEUMONIA; Hypertension; Kidney stones; Diabetes - IDDM; ca1 13:33 BACTERIAL PNEUMONIA; Diabetes - IDDM; Hypertension; Kidney stones; ph - PSHx: 13:20 Cholecystectomy; top left lung lobectomy; Lithotripsy; Renal Stents; ca1 13:33 Cholecystectomy; top left lung lobectomy; Lithotripsy; Renal Stents; ph - Immunization history:: Adult Immunizations up to date. - Social history:: Smoking status: Patient denies any tobacco usage or history of. ROS: 05/20 15:38 Constitutional: Negative for fever, chills, and weight loss, Eyes: Negative for injury, kdr pain, redness, and discharge, ENT: Negative for injury, pain, and discharge, Neck: Negative for injury, pain, and swelling, Cardiovascular: Negative for chest pain, palpitations, and edema, Respiratory: Negative for shortness of breath, cough, wheezing, and pleuritic chest pain, Abdomen/GI: Negative for abdominal pain, nausea, vomiting, diarrhea, and constipation, Back: Negative for injury and pain, : Negative for injury, bleeding, discharge, and swelling, MS/Extremity: Negative for injury and deformity, Skin: Negative for injury, rash, and discoloration, Psych: Negative for depression, anxiety, suicide ideation, homicidal ideation, and hallucinations, Allergy/Immunology: Negative for hives, rash, and allergies, Endocrine: Negative for neck swelling, polydipsia, polyuria, polyphagia, and marked weight changes, Hematologic/Lymphatic: Negative for swollen nodes, abnormal bleeding, and unusual bruising. Neuro: Positive for headache, speech changes, weakness, Negative for altered mental status, dizziness, gait disturbance, hearing loss. Exam: 05/19 14:06 ECG was reviewed by the Attending Physician. kdr 05/20 15:38 Constitutional: This is a well developed, well nourished patient who is awake, alert, kdr and in no acute distress. Head/Face: Normocephalic, atraumatic. Eyes: Pupils equal round and reactive to light, extra-ocular motions intact. Lids and lashes normal. Conjunctiva and sclera are non-icteric and not injected. Cornea within normal limits. Periorbital areas with no swelling, redness, or edema. Neck: Trachea midline, no thyromegaly or masses palpated, and no cervical lymphadenopathy. Supple, full range of motion without nuchal rigidity, or vertebral point tenderness. No Meningismus. Chest/axilla: Normal chest wall appearance and motion. Nontender with no deformity. No lesions are appreciated. Cardiovascular: Regular rate and rhythm with a normal S1 and S2. No gallops, murmurs, or rubs. Normal PMI, no JVD. No pulse deficits. Respiratory: Lungs have equal breath sounds bilaterally, clear to auscultation and percussion. No rales, rhonchi or wheezes noted. No increased work of breathing, no retractions or nasal flaring. Abdomen/GI: Soft, non-tender, with normal bowel sounds. No distension or tympany. No guarding or rebound. No evidence of tenderness throughout. Back: No spinal tenderness. No costovertebral tenderness. Full range of motion. Skin: Warm, dry with normal turgor. Normal color with no rashes, no lesions, and no evidence of cellulitis. MS/ Extremity: Pulses equal, no cyanosis. Neurovascular intact. Full, normal range of motion. Psych: Awake, alert, with orientation to person, place and time. Behavior, mood, and affect are within normal limits. Neuro: Orientation: is normal, Mentation: is normal, Memory: is normal, Cranial nerves: normal except CN 7 - lower face poorly functional, Cerebellar function: is grossly normal, Motor: is normal, moves all fours, Sensation: Gait: not applicable Vital Signs: 05/19 13:16 Weight 140.61 kg (M); Height 5 ft. 11 in. (180.34 cm) (R); ca1 13:35 BP 188 / 108; Pulse 86; Resp 18; Temp 98.2; Pulse Ox 99% on R/A; ph 14:17 BP 159 / 86; Pulse 77; Resp 22; Pulse Ox 99% ; sv 14:40 BP 159 / 86; Pulse 74; Resp 18; Pulse Ox 98% on R/A; ph 15:35 BP 172 / 95; Pulse 83; Resp 16; Pulse Ox 97% on R/A; ph 16:35 BP 168 / 82; Pulse 79; Resp 18; Pulse Ox 98% on R/A; ph 18:15 BP 175 / 86; Pulse 75; Resp 21; Pulse Ox 95% on R/A; vc 22:24 BP 154 / 86; Pulse 71; Resp 20; Pulse Ox 96% on R/A; vc 13:16 Body Mass Index 43.24 (140.61 kg, 180.34 cm) ca1 NIH Stroke Scale Scores: 13:15 NIHSS Score: 1 ph 13:25 NIHSS Score: 1 kdr MDM: 17:13 Patient medically screened. kdr 05/20 15:38 Data reviewed: vital signs, nurses notes. Counseling: I had a detailed discussion with kdr the patient and/or guardian regarding: the historical points, exam findings, and any diagnostic results supporting the discharge/admit diagnosis, lab results, radiology results, the need for further work-up and treatment in the hospital. 05/19 13:07 Order name: Basic Metabolic Panel ss 05/19 13:07 Order name: CBC with Diff ss 05/19 13:07 Order name: Protime (+inr) ss 05/19 13:07 Order name: Ptt, Activated ss 05/19 13:22 Order name: Glucose, Ancillary Testing; Complete Time: 16:04 EDMS 05/19 13:58 Order name: CBC with Automated Diff; Complete Time: 16:04 EDMS 05/19 13:07 Order name: CT Stroke Brain w/o Contrast 05/19 13:07 Order name: Stroke CXR 1 View 05/19 13:35 Order name: MRI Stroke Protocol kdr 05/19 13:40 Order name: CT; Complete Time: 16:04 EDMS 05/19 14:07 Order name: Basic Metabolic Panel; Complete Time: 16:04 EDMS 05/19 14:15 Order name: Protime (+INR); Complete Time: 16:04 EDMS 05/19 14:15 Order name: PTT, Activated Partial Thromb; Complete Time: 16:04 EDMS 05/19 14:49 Order name: RAD; Complete Time: 16:04 EDMS 05/19 13:07 Order name: EKG; Complete Time: 21:17 ss 05/19 13:07 Order name: Accucheck; Complete Time: 14:27 ss 05/19 13:07 Order name: Cardiac monitoring; Complete Time: 13:49 ss 05/19 13:07 Order name: EKG - Nurse/Tech; Complete Time: 13:49 ss 05/19 13:07 Order name: IV Saline Lock; Complete Time: 13:49 ss 05/19 13:07 Order name: Labs collected and sent; Complete Time: 13:50 ss 05/19 13:07 Order name: NPO; Complete Time: 13:50 ss 05/19 13:07 Order name: O2 Per Protocol; Complete Time: 13:50 ss 05/19 13:07 Order name: O2 Sat Monitoring; Complete Time: 13:50 ss 05/19 13:07 Order name: Stroke Swallow Screen; Complete Time: 13:50 ss EC/09 14:06 Rate is 93 beats/min. Rhythm is regular, Normal Sinus Rhythm with No ectopy. QRS [place] kdr is Normal. PA interval is normal. QRS interval is normal. QT interval is normal. Administered Medications: 13:45 Drug: Zofran (Ondansetron) 4 mg Route: IVP; Site: right antecubital; ph 18:07 Follow up: Response: No adverse reaction ph 13:49 Drug: Aspirin Chewable Tablet 81 mg Route: PO; ph 18:07 Follow up: Response: No adverse reaction ph 13:49 Drug: Metoprolol 5 mg Route: IVP; Site: right antecubital; ph 18:07 Follow up: Response: No adverse reaction ph 15:42 Drug: Tylenol 1000 mg Route: PO; ph 18:07 Follow up: Response: No adverse reaction ph 17:59 Drug: PlaVIX 75 mg Route: PO; vc Point of Care Testing: Blood Glucose: 13:20 Blood Glucose: 191 mg/dL; ca1 Ranges: Critical Glucose Levels:Adult <50 mg/dl or >400 mg/dl <40 mg/dl or >180 mg/dl Disposition: 05/19/20 17:13 Hospitalization ordered by Artur Nogueira for Inpatient Admission. Preliminary diagnosis is CVA. - Bed requested for Telemetry/MedSurg (Inpatient). - Status is Inpatient Admission. vc - Condition is Fair. - Problem is new. - Symptoms have improved. NIH Stroke Scale - NIH Stroke Score Date: 05/19/2020 Time: 13:15 Total Score = 1 1a. Level of Consciousness (LOC) - 0(Alert) 1b. Level of Consciousness (LOC) (Year \T\ Age) - 0(Both) 1c. LOC Commands (Open \T\ Closes Eyes/Unit Nurse) - 0(Both) 2. Best Gaze (Lateral Gaze Paresis) - 0(Normal) 3. Visual Field Loss - 0(No visual loss) 4. Facial Palsy - 1(Minor Paralysis) 5a. Left Arm: Motor (10-second hold) - 0(No drift) 5b. Right Arm: Motor (10-second hold) - 0(No drift) 6a. Left Leg: Motor (5-second hold - always test supine) - 0(No drift) 6b. Right Leg: Motor (5-second hold - always test supine) - 0(No drift) 7. Limb Ataxia (finger/nose \T\ heel/burton - test with eyes open) - 0(Absent) 8. Sensory Loss (pinprick arms/legs/face) - 0(Normal) 9. Best Language: Aphasia (description/naming/reading) - 0(No aphasia) 10. Dysarthria (speech clarity - read or repeat words) - 0(Normal) 11. Extinction and Inattention (visual/tactile/auditory/spatial/personal) - 0(No abnormality) Initials: NIH Stroke Scale - NIH Stroke Score Date: 05/19/2020 Time: 13:25 Total Score = 1 1a. Level of Consciousness (LOC) - 0(Alert) 1b. Level of Consciousness (LOC) (Year \T\ Age) - 0(Both) 1c. LOC Commands (Open \T\ Closes Eyes/Unit Nurse) - 0(Both) 2. Best Gaze (Lateral Gaze Paresis) - 0(Normal) 3. Visual Field Loss - 0(No visual loss) 4. Facial Palsy - 1(Minor Paralysis) 5a. Left Arm: Motor (10-second hold) - 0(No drift) 5b. Right Arm: Motor (10-second hold) - 0(No drift) 6a. Left Leg: Motor (5-second hold - always test supine) - 0(No drift) 6b. Right Leg: Motor (5-second hold - always test supine) - 0(No drift) 7. Limb Ataxia (finger/nose \T\ heel/burton - test with eyes open) - 0(Absent) 8. Sensory Loss (pinprick arms/legs/face) - 0(Normal) 9. Best Language: Aphasia (description/naming/reading) - 0(No aphasia) 10. Dysarthria (speech clarity - read or repeat words) - 0(Normal) 11. Extinction and Inattention (visual/tactile/auditory/spatial/personal) - 0(No abnormality) Initials: kdr Signatures: Dispatcher [employer] EDMS Fan Herron MD MD kdr Aster Vegas RN RN ss Jaclyn Campbell RN RN ph Garcia, Cindy, RN RN cg Acob, Cheryl, RN RN ca1 Radha Cehster RN RN vc Corrections: (The following items were deleted from the chart) 21:38 17:13 Hospitalization Ordered by Artur Nogueira DO for Inpatient Admission. Preliminary diagnosis is CVA. Bed requested for Telemetry/MedSurg (Inpatient). Status is Inpatient Admission. Condition is Fair. Problem is new. Symptoms have improved. kdr 23:36 21:38 05/19/2020 17:13 Hospitalization Ordered by Artur Nogueira DO for vc Inpatient Admission. Preliminary diagnosis is CVA. Bed requested for Telemetry/MedSurg (Inpatient). Status is Inpatient Admission. Condition is Fair. Problem is new. Symptoms have improved. 05/20 15:55 15:38 Constitutional: This is a well developed, well nourished patient who is kdr awake, alert, and in no acute distress. Head/Face: Normocephalic, atraumatic. Eyes: Pupils equal round and reactive to light, extra-ocular motions intact. Lids and lashes normal. Conjunctiva and sclera are non-icteric and not injected. Cornea within normal limits. Periorbital areas with no swelling, redness, or edema. Neck: Trachea midline, no thyromegaly or masses palpated, and no cervical lymphadenopathy. Supple, full range of motion without nuchal rigidity, or vertebral point tenderness. No Meningismus. Chest/axilla: Normal chest wall appearance and motion. Nontender with no deformity. No lesions are appreciated. Cardiovascular: Regular rate and rhythm with a normal S1 and S2. No gallops, murmurs, or rubs. Normal PMI, no JVD. No pulse deficits. Respiratory: Lungs have equal breath sounds bilaterally, clear to auscultation and percussion. No rales, rhonchi or wheezes noted. No increased work of breathing, no retractions or nasal flaring. Abdomen/GI: Soft, non-tender, with normal bowel sounds. No distension or tympany. No guarding or rebound. No evidence of tenderness throughout. Back: No spinal tenderness. No costovertebral tenderness. Full range of motion. Skin: Warm, dry with normal turgor. Normal color with no rashes, no lesions, and no evidence of cellulitis. MS/ Extremity: Pulses equal, no cyanosis. Neurovascular intact. Full, normal range of motion. Psych: Awake, alert, with orientation to person, place and time. Behavior, mood, and affect are within normal limits. kdr
--- NOTE | 2020-05-19 17:14 | ER ---
Nurse's Notes [facility] Name: Fantasma Cobb Age: 49 yrs Sex: Male : 1970 Arrival Date: 05/19/2020 Time: 13:05 Bed 27 Private MD: Moisés Menjivar Diagnosis: CVA Presentation: 05/19 13:16 Chief complaint: Patient states: Slurring of speech 30 minutes ago, now resolved. ca1 Facial droop noticed on CT on the L side. No arm drift. Denies weakness of extremities. A\T\Ox4. Coronavirus screen: Proceed with normal triage. Patient denies a cough. Patient denies shortness of breath or difficulty breathing. Patient denies measured and/or subjective temperature greater than 100.4F prior to today's visit. Patient denies travel on a cruise ship or to a country the [facility] currently lists as an affected area. Patient denies contact with known and/or suspected case of COVID-19. Ebola Screen: Patient negative for fever greater than or equal to 101.5 degrees Fahrenheit, and additional compatible Ebola Virus Disease symptoms Patient denies exposure to infectious person. Patient denies travel to an Ebola-affected area in the 21 days before illness onset. No symptoms or risks identified at this time. No acute neurological deficit is noted. The patients blood glucose was checked before arriving to the hospital and was found to be normal. Initial Sepsis Screen: Does the patient meet any 2 criteria? No. Patient's initial sepsis screen is negative. Does the patient have a suspected source of infection? No. Patient's initial sepsis screen is negative. Risk Assessment: Do you want to hurt yourself or someone else? Patient reports no desire to harm self or others. Onset of symptoms was May 19, 2020 at 12:45. 13:16 Method Of Arrival: Wheelchair ca1 13:16 Acuity: INGRID 2 ca1 Stroke Activation: Symptom onset < 3 hours Physician: Stroke Attending; Name: ; Notified At: ; Arrived At: Physician: Chief Stroke Resident; Name: ; Notified At: ; Arrived At: Physician: Stroke Resident; Name: ; Notified At: ; Arrived At: Physician: ED Attending; Name: ; Notified At: ; Arrived At: Physician: ED Resident; Name: ; Notified At: ; Arrived At: Historical: - Allergies: 13:20 No Known Allergies; ca1 - Home Meds: 13:20 amlodipine 5 mg tab 1 tab once daily [Active]; aspirin 81 mg Oral TbEC 1 tab once daily ca1 [Active]; lisinopril 10 mg Oral tab 1 tab once daily [Active]; Victoza 2-Javier 0.6 mg/0.1 mL (18 mg/3 mL) subcutaneous pnij 0.3 mL once daily [Active]; Novolog 100 unit/mL Sub-Q soln [Active]; - PMHx: 13:20 BACTERIAL PNEUMONIA; Hypertension; Kidney stones; Diabetes - IDDM; ca1 13:33 BACTERIAL PNEUMONIA; Diabetes - IDDM; Hypertension; Kidney stones; ph - PSHx: 13:20 Cholecystectomy; top left lung lobectomy; Lithotripsy; Renal Stents; ca1 13:33 Cholecystectomy; top left lung lobectomy; Lithotripsy; Renal Stents; ph - Immunization history:: Adult Immunizations up to date. - Social history:: Smoking status: Patient denies any tobacco usage or history of. Screenin:51 Abuse screen: Denies threats or abuse. Denies injuries from another. Nutritional ph screening: No deficits noted. Tuberculosis screening: No symptoms or risk factors identified. Fall Risk None identified. Assessment: 13:06 Reassessment: Code stroke called overhead. ph 13:07 Reassessment: Pt taken to CT via wheelchair by PHI Marx. ph 13:15 Reassessment: Patient is alert, oriented x 3, equal unlabored respirations, skin ph warm/dry/pink. Dr Herron at bedside to assess pt. 13:45 VAN Scoring: Arm Drift: Patients demonstrates NO arm weakness. Patient is VAN Negative. ph Patient has been NPO before screening. The patient is alert, and able to follow commands. The patient does not exhibit slurred or garbled speech. The patient is not exhibiting difficulty speaking. The patient does not exhibit difficulty understanding words. The patient is able to swallow own secretions with no drooling or need for suction. Patient tolerated one teaspoon of water. No drooling, immediate coughing, gurgling, or clearing of the throat was noted. The patient tolerated 90mL of water. No drooling, immediate coughing, gurgling, or clearing of the throat was noted. The patient passed the bedside swallow screening. Oral medications may be given as ordered. Contact Physician for further diet orders. Provider notified of bedside swallow screening results: Fan Herron MD. General: Appears in no apparent distress. comfortable, well groomed, Behavior is calm, cooperative, appropriate for age, Denies fever, feeling ill. Pain: Complains of pain in top of head and forehead. Neuro: Level of Consciousness is awake, alert, obeys commands, Oriented to person, place, time, situation, [employer] Supervisor are equal bilaterally Moves all extremities. Full function Speech is slurred, Facial droop on left, Pupils are PERRLA, Intact Reports headache frontal area. Cardiovascular: Denies chest pain, Capillary refill < 3 seconds in bilateral fingers Patient's skin is warm and dry. Rhythm is sinus rhythm. Respiratory: Airway is patent Respiratory effort is even, unlabored, Respiratory pattern is regular, symmetrical. GI: Reports nausea, Patient currently denies abdominal pain, diarrhea, vomiting. Derm: Skin is intact, is healthy with good turgor, Skin is pink, warm \T\ dry. Musculoskeletal: Circulation, motion, and sensation intact. Range of motion: intact in all extremities. 14:40 Reassessment: Patient appears in no apparent distress at this time. Patient and/or ph family updated on plan of care and expected duration. Pain level reassessed. Patient is alert, oriented x 3, equal unlabored respirations, skin warm/dry/pink. 15:25 Reassessment: Patient appears in no apparent distress at this time. Patient and/or ph family updated on plan of care and expected duration. Pain level reassessed. Patient is alert, oriented x 3, equal unlabored respirations, skin warm/dry/pink. Pt ambulated to restroom w/ steady gait, c/o headache in frontal area, ERP notified, see MAR. 16:30 Reassessment: Patient appears in no apparent distress at this time. Patient and/or ph family updated on plan of care and expected duration. Pain level reassessed. Patient is alert, oriented x 3, equal unlabored respirations, skin warm/dry/pink. 17:30 Reassessment: Patient appears in no apparent distress at this time. Patient and/or ph family updated on plan of care and expected duration. Pain level reassessed. Patient is alert, oriented x 3, equal unlabored respirations, skin warm/dry/pink. 18:30 Reassessment: Patient appears in no apparent distress at this time. Patient and/or vc family updated on plan of care and expected duration. Pain level reassessed. Patient is alert, oriented x 3, equal unlabored respirations, skin warm/dry/pink. Patient denies pain at this time. Vital Signs: 13:16 Weight 140.61 kg (M); Height 5 ft. 11 in. (180.34 cm) (R); ca1 13:35 BP 188 / 108; Pulse 86; Resp 18; Temp 98.2; Pulse Ox 99% on R/A; ph 14:17 BP 159 / 86; Pulse 77; Resp 22; Pulse Ox 99% ; sv 14:40 BP 159 / 86; Pulse 74; Resp 18; Pulse Ox 98% on R/A; ph 15:35 BP 172 / 95; Pulse 83; Resp 16; Pulse Ox 97% on R/A; ph 16:35 BP 168 / 82; Pulse 79; Resp 18; Pulse Ox 98% on R/A; ph 18:15 BP 175 / 86; Pulse 75; Resp 21; Pulse Ox 95% on R/A; vc 22:24 BP 154 / 86; Pulse 71; Resp 20; Pulse Ox 96% on R/A; vc 13:16 Body Mass Index 43.24 (140.61 kg, 180.34 cm) ca1 NIH Stroke Scale Scores: 13:15 NIHSS Score: 1 ph 13:25 NIHSS Score: 1 kdr ED Course: 13:05 Patient arrived in ED. mr 13:05 Moisés Menjivar MD is Private Physician. mr 13:07 Jaclyn Campbell RN is Primary Nurse. ph 13:08 Fan Herron MD is Attending Physician. kdr 13:19 Triage completed. ca1 13:20 Arm band placed on right wrist. ca1 13:25 Inserted saline lock: 20 gauge in right antecubital area, using aseptic technique. ph Blood collected. 13:27 EKG done, by ED staff, reviewed by Fan Herron MD. sv 13:53 Patient has correct armband on for positive identification. Placed in gown. Bed in low ph position. Call light in reach. Side rails up X 1. monitoring and evaluation advisor on. Pulse ox on. NIBP on. Door closed. Noise minimized. Warm blanket given. 17:06 No provider procedures requiring assistance completed. Patient admitted, IV remains in ph place. 17:12 Artur Nogueira DO is Hospitalizing Provider. kdr Administered Medications: 13:45 Drug: Zofran (Ondansetron) 4 mg Route: IVP; Site: right antecubital; ph 18:07 Follow up: Response: No adverse reaction ph 13:49 Drug: Aspirin Chewable Tablet 81 mg Route: PO; ph 18:07 Follow up: Response: No adverse reaction ph 13:49 Drug: Metoprolol 5 mg Route: IVP; Site: right antecubital; ph 18:07 Follow up: Response: No adverse reaction ph 15:42 Drug: Tylenol 1000 mg Route: PO; ph 18:07 Follow up: Response: No adverse reaction ph 17:59 Drug: PlaVIX 75 mg Route: PO; vc Point of Care Testing: Blood Glucose: 13:20 Blood Glucose: 191 mg/dL; ca1 Ranges: Outcome: 17:13 Decision to Hospitalize by Provider. kdr 23:36 Patient left the ED. vc NIH Stroke Scale - NIH Stroke Score Date: 05/19/2020 Time: 13:15 Total Score = 1 1a. Level of Consciousness (LOC) - 0(Alert) 1b. Level of Consciousness (LOC) (Year \T\ Age) - 0(Both) 1c. LOC Commands (Open \T\ Closes Eyes/Wood Piler) - 0(Both) 2. Best Gaze (Lateral Gaze Paresis) - 0(Normal) 3. Visual Field Loss - 0(No visual loss) 4. Facial Palsy - 1(Minor Paralysis) 5a. Left Arm: Motor (10-second hold) - 0(No drift) 5b. Right Arm: Motor (10-second hold) - 0(No drift) 6a. Left Leg: Motor (5-second hold - always test supine) - 0(No drift) 6b. Right Leg: Motor (5-second hold - always test supine) - 0(No drift) 7. Limb Ataxia (finger/nose \T\ heel/burton - test with eyes open) - 0(Absent) 8. Sensory Loss (pinprick arms/legs/face) - 0(Normal) 9. Best Language: Aphasia (description/naming/reading) - 0(No aphasia) 10. Dysarthria (speech clarity - read or repeat words) - 0(Normal) 11. Extinction and Inattention (visual/tactile/auditory/spatial/personal) - 0(No abnormality) Initials: NIH Stroke Scale - NIH Stroke Score Date: 05/19/2020 Time: 13:25 Total Score = 1 1a. Level of Consciousness (LOC) - 0(Alert) 1b. Level of Consciousness (LOC) (Year \T\ Age) - 0(Both) 1c. LOC Commands (Open \T\ Closes Eyes/Wood Piler) - 0(Both) 2. Best Gaze (Lateral Gaze Paresis) - 0(Normal) 3. Visual Field Loss - 0(No visual loss) 4. Facial Palsy - 1(Minor Paralysis) 5a. Left Arm: Motor (10-second hold) - 0(No drift) 5b. Right Arm: Motor (10-second hold) - 0(No drift) 6a. Left Leg: Motor (5-second hold - always test supine) - 0(No drift) 6b. Right Leg: Motor (5-second hold - always test supine) - 0(No drift) 7. Limb Ataxia (finger/nose \T\ heel/burton - test with eyes open) - 0(Absent) 8. Sensory Loss (pinprick arms/legs/face) - 0(Normal) 9. Best Language: Aphasia (description/naming/reading) - 0(No aphasia) 10. Dysarthria (speech clarity - read or repeat words) - 0(Normal) 11. Extinction and Inattention (visual/tactile/auditory/spatial/personal) - 0(No abnormality) Initials: [facility] Signatures: Delmi Wilburn RN RN sv Rittger, Kevin, MD MD [facility] Jaclyn Campbell RN RN Araseli Herr RN RN [facility] Radha Chester RN RN vc Corrections: (The following items were deleted from the chart) 18:06 18:05 NIHSS Score: 1 [facility]
--- NOTE | 2020-05-19 17:27 | P.HP ---
Certification for Inpatient Patient admitted to: Inpatient With expected LOS: >2 Midnights Patient will require the following post-hospital care: None Practitioner: I am a practitioner with admitting privileges, knowledge of patient current condition, hospital course, and medical plan of care. Services: Services provided to patient in accordance with Admission requirements found in Title 42 Section 412.3 of the Code of Federal Regulations Patient History Date of Service: 05/19/20 Primary Care Provider: Dr. hameed Reason for admission: CVA History of Present Illness: 49-year-old male with medical history of hypertension, diabetes, hyperlipidemia presented to the emergency department for left facial droop that was noticed by coworkers at work. Patient reports that he was feeling dizzy yesterday but could not tell exactly when it started. During his evaluation in the emergency department patient was found to have a subacute nonhemorrhagic CVA. ED provider reached out to neurology who agreed to consult on the case for admission. The patient be admitted for further evaluation and management. When I saw the patient in the emergency department he appeared well, patient was alert, oriented x3 in no distress. Patient denies pain. Patient does have notable left-sided facial droop. Patient also reports that he is having some difficulty walking yesterday and tripping over things. Will admit patient for further evaluation and management. Allergies No Known Drug Allergies Allergy (Verified 02/25/17 14:34) Unknown No Known Allergies Allergy (Uncoded 02/25/17 14:43) Unknown Home Medications: Aspirin 81 mg PO DAILY #0 tab.chew 09/12/12 Rosuvastatin [Crestor*] 20 mg PO BEDTIME 08/17/13 lisinopriL [Prinivil*] 20 mg PO DAILY WITH BREAKFAST 08/17/13 Amlodipine Besylate 1 tab PO DAILY 02/25/17 Insulin Degludec [Tresiba Flextouch U-200] 100 units SQ DAILY 09/17/18 Liraglutide [Victoza 2-Javier] 1.8 mg SQ BEDTIME 09/17/18 Loratadine [Claritin*] 10 mg PO DAILY PRN tab 09/18/18 Metoprolol Tartrate [Lopressor*] 25 mg PO BID #30 tab 09/18/18 - Past Medical/Surgical History Has patient received pneumonia vaccine in the past: No Diabetic: Yes -: Diabetes mellitus type 2-insulin dependent -: Hypertension -: Hyperlipidemia -: Kidney stones -: CHOLECYSTECTOMY -: TOP LEFT LUNG LOBECTOMY -: LITHOTRIPSY -: RENAL STENT Psychosocial/ Personal History: Patient is and lives at home. - Family History Mother -: Diabetes, Stroke Father -: Diabetes - Social History Smoking Status: Never smoker Alcohol use: Yes CD- Drugs: No Caffeine use: Yes Place of Residence: Home Review of Systems General: Unremarkable Eyes: Unremarkable ENT: Unremarkable Respiratory: Unremarkable Cardiovascular: Unremarkable Gastrointestinal: Unremarkable Genitourinary: Unremarkable Musculoskeletal: Unremarkable Integumentary: Unremarkable Neurological: Other (Patient with left-sided facial droop resulting in mild slurred speech. Patient also with some difficulties with balance.) Physical Examination - Physical Exam General: Alert, In no apparent distress, Oriented x3 HEENT: Atraumatic, Normocephalic Neck: Supple Respiratory: Clear to auscultation bilaterally, Normal air movement Cardiovascular: Normal S1 S2 Capillary refill: <2 Seconds Gastrointestinal: Normal bowel sounds, Soft and benign Musculoskeletal: No erythema, No tenderness Integumentary: No rashes, No breakdown, No significant lesion Neurological: Normal strength at 5/5 x4 extr, Normal tone, Sensation intact, Cranial nerves 3-12 intact, Other (Patient with left-sided facial droop, slurred speech.) - Studies Laboratory Data (last 24 hrs) 05/19/20 13:25: PT 12.4, INR 1.05, APTT 33.5 05/19/20 13:25: WBC 9.6, Hgb 15.7, Hct 47.4, Plt Count 286 05/19/20 13:25: Sodium 141, Potassium 3.6, BUN 14, Creatinine 1.21, Glucose 211 H Assessment and Plan - Plan Assessment Subacute CVA right temporoparietal region Diabetes mellitus type 2-insulin dependent Hypertension Hyperlipidemia Plan Subacute CVA right temporoparietal region: Patient be admitted for further evaluation management. Patient now pending MRI stroke protocol, echocardiogram, ultrasound of the carotids. Patient will start with Plavix 75 mg once daily, f olic acid p.o., statin medication daily. Neurology has been consulted. Will continue with neuro checks. Appreciate further input from neurology. DVT prophylaxis with Lovenox 40 mg subcutaneous once daily. Diabetes mellitus type 2-insulin dependent: Patient manages on blood sugars with his insulin pump as he is comfortable doing so. Hypertension: Will obtain and continue patient's home medications. Will allow some permissive hypertension, as patient is with subacute ischemic CVA. Hyperlipidemia: Have initiated short statin 40 mg nightly. Will obtain and review patient's home medications. Discharge Plan: Home Plan to discharge in: 48 Hours - Advance Directives Does patient have a Living Will: No Does patient have a Durable POA for Healthcare: No - Code Status/Comfort Care Code Status Assessed: Yes (The patient is full code) Critical Care: No Time Spent Managing Pts Care (In Minutes): 55
[2020-05-19] MEDS ORDERED: CLOPIDOGREL 75 MG TABLET ONE (17:30)
[2020-05-19] MEDS ORDERED: ATORVASTATIN 40 MG TAB PO SCH (22:46)
[2020-05-19] MEDS ORDERED: ONDANSETRON 4 MG/2 ML VIAL IV PRN (22:46)
[2020-05-19] MEDS ORDERED: ASPIRIN 325 MG TAB PO ONE (22:46)
[2020-05-20 00:29] VITALS: BMI 33.2
[2020-05-20] MEDS ORDERED: HYDRALAZINE HCL 20 MG/ML VIAL IV ONE (00:57)
[2020-05-20] MEDS: ACETAMINOPHEN 500 MG TAB PO PRN ×2 (01:33→13:09)
[2020-05-20] MEDS: ENOXAPARIN 40 MG/0.4 ML SQ SCH ×2 (01:34→09:00)
[2020-05-20 06:26] LABS: Absolute Lymphocytes (CBC) 2.5 K/uL (0.7-4.9); Basophils % 1.3 % (0-1.3); Lymphocytes % 30.4 % (15.3-44.8); RBC Red Blood Cell Count 5.86 M/uL (4.33-5.43)
[2020-05-20] MEDS ORDERED: MORPHINE 2 MG/ML SYR IV ONE (06:32)
[2020-05-20 06:47] LABS: Magnesium 2.1 mg/dL (1.8-2.4); Potassium 3.7 mmol/L (3.5-5.1); Thyroid Stimulating Hormone 1.08 uIU/mL (0.360-3.740)
[2020-05-20] MEDS ORDERED: POTASSIUM CL SA 10 MEQ TAB PO ONE (08:54)
[2020-05-20] MEDS ORDERED: CLOPIDOGREL 75 MG TABLET PO SCH (09:00)
[2020-05-20] MEDS ORDERED: FOLIC ACID 1 MG TABLET PO SCH (09:00)
[2020-05-20 10:10] VITALS: O2SAT 95
[2020-05-20] MEDS ORDERED: D50W 25 GM/50 ML SYRINGE/VIAL IV PRN (11:50)
[2020-05-20] MEDS ORDERED: GLUCAGON 1 MG/VIAL IM PRN (11:50)
[2020-05-20 13:10] VITALS: BP 190/90
[2020-05-20 13:15] VITALS: TEMP 97.3
--- NOTE | 2020-05-20 13:40 | RAD REPORT ---
EXAM DESCRIPTION: USCarotid Artery Bilateral05/20/2020 1:30 pm CLINICAL HISTORY: cva COMPARISON: None FINDINGS: The velocity of the right internal carotid artery equals 69 cm/sec. The right ICA/CCA rati o .7 The velocity of the left internal carotid artery equals 99 cm/sec. The left ICA/CCA ratio .8 Mild plaque is present within the carotid arteries. The vertebral arteries demonstrate antegrade flow IMPRESSION: Mild plaque within the carotid arteries without evidence of a hemodynamically significan t stenosis NASCET criteria used. Mild 0-49% stenosis Moderate 50-69% stenosis Severe 70-99% stenosis
--- NOTE | 2020-05-20 13:41 | ECHO ---
HEIGHT: 5 ft 11 in WEIGHT: 238 lb 6 oz DATE OF STUDY: 05/20/[address]: Riki Desai NP 2-DIMENSIONAL: YES M.MODE: YES DOPPLER: YES COLOR FLOW: YES TDS: NO PORTABLE: NO DEFINITY: NO BUBBLE STUDY: NO DIAGNOSIS: CEREBRAL VASCULAR ACCIDENT CARDIAC HISTORY: CATHERIZATION: NO SURGERY: NO PROSTHETIC VALVE: NO PACEMAKER: NO MEASUREMENTS (cm) DIASTOLIC (NORMALS) SYSTOLIC (NORMALS) IVSd 1.1 (0.6-1.2) LA Diam 3.7 (1.9-4.0) LVEF 76% LVIDd 3.6 (3.5-5.7) LVIDs 2.0 (2.0-3.5) %FS 44% LVPWd 1.1 (0.6-1.2) Ao Diam 2.8 (2.0-3.7) 2 DIMENSIONAL ASSESSMENT: RIGHT ATRIUM: NORMAL LEFT ATRIUM: NORMAL RIGHT VENTRICLE: NORMAL LEFT VENTRICLE: NORMAL TRICUSPID VALVE: NORMAL MITRAL VALVE: NORMAL PULMONIC VALVE: NORMAL AORTIC VALVE: NORMAL PERICARDIAL EFFUSION: NONE AORTIC ROOT: NORMAL LEFT VENTRICULAR WALL MOTION: NORMAL DOPPLER/COLOR FLOW: NORMAL COMMENTS: NORMAL LEFT VENTRICULAR EJECTION FRACTION 55-60% WITH NORMAL WALL MOTION. DIASTOLIC DYSFUNCTION. TECHNOLOGIST: Brandyn BARRIOS
--- NOTE | 2020-05-20 14:21 | P.DS ---
Admission Date: 05/19/20 Discharge Date: 05/20/20 Primary Care Provider: Dr. hameed Disposition: ROUTINE DISCHARGE Discharge Condition: GOOD Reason for Admission: CVA Consultations: Neurology-Dr. Bates Procedures: CT scan: FINDINGS: No intracranial hemorrhage, hydrocephalus or extra-axial fluid collection.Areas of diminished density are seen in the right temporoparietal suggesting subacute infarction. The paranasal sinuses and mastoids are clear. The calvarium is intact. IMPRESSION: Poorly defined areas of diminished density is seen right temporoparietal region suggesting subacute infarction. No hemorrhagic component. ECHO: EF 76% LEFT VENTRICULAR WALL MOTION: NORMAL DOPPLER/COLOR FLOW: NORMAL COMMENTS: NORMAL LEFT VENTRICULAR EJECTION FRACTION 55-60% WITH NORMAL WALL MOTION. DIASTOLIC DYSFUNCTION. Carotid doppler: FINDINGS: The velocity of the right internal carotid artery equals 69 cm/sec. The right ICA/CCA ratio .7 The velocity of the left internal carotid artery equals 99 cm/sec. The left ICA/CCA ratio .8 Mild plaque is present within the carotid arteries. 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 She also felt dizzy. CT scan shows possible subacute nonhemorrhagic CVA. Patient was admitted for further evaluation. Hospital Course: Patient presented with left facial droop. Patient was evaluated in the emergency room. CT scan showed possible subacute CVA to the right temporo parietal region. Patient was admitted for further evaluation. Echocardiogram shows normal ejection fraction but diastolic dysfunction noted. Carotid Doppler unremarkable. MRI could not be done. Patient seen and evaluated by Neurology. Neurology felt this was not a CVA but left facial droop related to Hawthorne's palsy. Patient has done well. Due to his multiple risk factors neurology still recom mends to continue aspirin 81 mg daily, Plavix 75 mg daily, folic acid 1 mg daily, Crestor 20 mg daily. Neurology also recommends to treat Hawthorne's palsy with acyclovir 400 mg 1 pill 5 times a day for 10 days. Recommend follow up with neurology in 1 week to follow up this hospitalization. Education on Hawthorne's palsy, CVA will be provided. Patient with diabetes mellitus type 2. Patient with insulin pump. This has remained stable. Patient will continue with insulin pump and victoza. Recommend follow up with his PCP or electronic industrial controls mechanic to further monitor and address. Patient with hypertension. At discharge he will continue with his current medications of Norvasc 2.5 mg daily and lisinopril 20 mg daily. Recommend to monitor his blood pressure daily. Recommend to maintain blood pressure less 150/80. Further adjustment can be done by his PCP. Patient with hyperlipidemia. LDL extremely elevated. Patient admits to noncompliance with medication. Patient will continue with Crestor 20 mg daily. Compliance addressed in detail. Recommend to recheck fasting lipid panel in 1 month to monitor his progress. Further adjustment can be done by his PCP. Echocardiogram shows ejection fraction above 70%. Diastolic dysfunction suspected. Patient likely has underlying diastolic CHF. Recommend to monitor his weight daily. Recommend to continue a 1500 cc per day fluid restriction and low-salt diet. Will recommend cardiology evaluation as an outpatient to further address. Patient likely requires cardiac evaluation to further address. Patient likely with underlying obstructive sleep apnea. Recommend sleep study evaluation to further address. Patient was tested for COVID. Test is pending at discharge. Therefore will recommend to continue quarantine until results have finalized. He may call back at the hospital within the next 2 days. For now patient will continue with quarantine, mask, hand washing and social distancing. CDC guidelines will be provided. Vital Signs/Physical Exam: Temp Pulse Resp BP Pulse Ox 97.3 F 85 18 190/90 H 98 05/20/20 12:00 05/20/20 13:05/20/20 12:00 05/20/20 13:05/20/20 12:00 General: Alert, In no apparent distress, Oriented x3, Cooperative HEENT: Atraumatic, Other (Left facial droop noted) Neck: Supple Respiratory: Clear to auscultation bilaterally, Normal air movement Cardiovascular: Normal pulses, Regular rate/rhythm Gastrointestinal: Normal bowel sounds, Soft and benign, Non-distended, No tenderness, No masses, No rebound, No guarding Musculoskeletal: No tenderness, No warmth Neurological: Normal speech, Normal strength at 5/5 x4 extr, Normal tone, Other (Left facial droop noted) Laboratory Data at Discharge: WBC 8.3 K/uL (4.3-10.9) 05/20/20 05:53 Hgb 16.0 g/dL (13.6-17.9) 05/20/20 05:53 Hct 48.0 % (39.6-49.0) 05/20/20 05:53 Plt Count 245 K/uL (152-406) 05/20/20 05:53 PT 12.4 SECONDS (9.5-12.5) 05/19/20 13:25 INR 1.05 05/19/20 13:25 APTT 33.5 SECONDS (24.3-36.9) 05/19/20 13:25 Sodium 141 mmol/L (136-145) 05/20/20 05:53 Potassium 3.7 mmol/L (3.5-5.1) 05/20/20 05:53 BUN 15 mg/dL (7-18) 05/20/20 05:53 Creatinine 0.94 mg/dL (0.55-1.3) 05/20/20 05:53 Glucose 153 mg/dL (74-106) H 05/20/20 05:53 Magnesium 2.1 mg/dL (1.8-2.4) 05/20/20 05:53 Triglycerides 178 mg/dL (<150) H 05/20/20 05:53 Cholesterol 277 mg/dL (<200) H 05/20/20 05:53 HDL Cholesterol 41 mg/dL (40-60) 05/20/20 05:53 Cholesterol/HDL Ratio 6.76 05/20/20 05:53 Home Medications: Aspirin 81 mg PO DAILY #0 tab.chew 09/12/12 lisinopriL [Prinivil*] 20 mg PO DAILY WITH BREAKFAST 08/17/13 Amlodipine Besylate 1 tab PO DAILY 02/25/17 Liraglutide [Victoza 2-Javier] 1.8 mg SQ BEDTIME 09/17/18 Acyclovir 400 mg PO SEECOM #50 tablet 05/20/20 Clopidogrel Bisulfate [Plavix*] 75 mg PO DAILY #30 tablet 05/20/20 Folic Acid 1 mg PO DAILY #90 tablet 05/20/20 Rosuvastatin [Crestor*] 20 mg PO BEDTIME #30 tab 05/20/20 New Medications: Acyclovir 400 mg PO SEECOM #50 tablet Rosuvastatin [Crestor*] 20 mg PO BEDTIME #30 tab Folic Acid 1 mg PO DAILY #90 tablet Clopidogrel Bisulfate [Plavix*] 75 mg PO DAILY #30 tablet Patient Discharge Instructions: 1. Recommend follow up with PCP in 1 week to follow up this hospitalization. 2. Patient presented with left facial droop. Patient was evaluated in the emergency room. CT scan showed possible subacute CVA to the right temporoparietal region. Patient was admitted for further evaluation. Echocardiogram shows normal ejection fraction but diastolic dysfunction noted. Carotid Doppler unremarkable. MRI could not be done. Patient seen and evaluated by Neurology. Neurology felt this was not a CVA but left facial droop related to Hawthorne's palsy. Patient has done well. Due to his multiple risk factors neurology still recommends to continue aspirin 81 mg daily, Plavix 75 mg daily, folic acid 1 mg daily, Crestor 20 mg daily. Neurology also recommends to treat Hawthorne's palsy with acyclovir 400 mg 1 pill 5 times a day for 10 days. Recommend follow up with neurology in 1 week to follow up this hospitalization. Education on Hawthorne's palsy, CVA will be provided. 3. Patient with diabetes mellitus type 2. Patient with insulin pump. This has remained stable. Patient will continue with insulin pump and victoza. Recommend follow up with his PCP or electronic industrial controls mechanic to further monitor and address. 4. Patient with hypertension. At discharge he will continue with his current medications of Norvasc 2.5 mg daily and lisinopril 20 mg daily. Recommend to monitor his blood pressure daily. Recommend to maintain blood pressure less 150/80. Further adjustment can be done by his PCP. 5. Patient with hyperlipidemia. LDL extremely elevated. Patient admits to noncompliance with medication. Patient will continue with Crestor 20 mg daily. Compliance addressed in detail. Recommend to recheck fasting lipid panel in 1 month to monitor his progress. Further adjustment can be done by his PCP. 6. Echocardiogram shows ejection fraction above 70%. Diastolic dysfunction suspected. Patient likely has underlying diastolic CHF. Recommend to monitor his weight daily. Recommend to continue a 1500 cc per day fluid restriction and low-salt diet. Will recommend cardiology evaluation as an outpatient to further address. Patient likely requires cardiac evaluation to further address. 7. Patient likely with underlying obstructive sleep apnea. Recommend sleep study evaluation to further address. 8. Patient was tested for COVID. Test is pending at discharge. Therefore will recommend to continue quarantine until results have finalized. He may call back at the hospital within the next 2 days. For now patient will continue with quarantine, mask, hand washing and s ocial distancing. CDC guidelines will be provided. Diet: ADA Activity: Ad olamide Time spent managing pt's care (in minutes): 55
[2020-05-20] MEDS ORDERED: INSULIN -REGULAR HUMAN 50 UNIT/0.5 ML ML SQ SCH (16:30)
--- NOTE | 2020-05-20 22:21 | CON ---
Reason For Consultation: Called by the emergency room physician because of possible stroke. History Of Present Illness: Mr. Cobb is a 49-year-old right-handed patient with hyperte nsion, diabetes mellitus, dyslipidemia, who at work was noted to have slurred speech. Onset of sympt oms around 12:30 on 05/19/2020. He was at work and was noticed by coworkers and also noted some left facial drooping. He came to [facility] and at that point, his slurred speech had resolved. However, there was noted to be some left facial drooping. No weakness, numbness in the arms, legs. No loss of balance, gait, coordination. No shortness of breath. No chest pain. No abdominal issu es. No fever, no chills. He had a CT scan of his head which suggested subacute findings. There is poorly area of diminished density in the right temporoparietal region suggestive of subacute infarct. The patient could not get an MRI since the MRI machine was down. He was admitted for stroke workup , however. He was placed on aspirin along with Plavix, folic acid, he received Lovenox for DVT proph ylaxis, and had permissive hypertension although Prinivil 20 mg daily was placed and he had dyslipide jessica medication Lipitor onboard. The patient believes he is, at the time of my evaluation, which was on the , he resolved his symptoms and was back to a baseline, although he did have some persisten t facial asymmetry. Past Medical History: Kidney stones. As indicated. Allergies: NO KNOWN DRUG ALLERGIES. Medications: At home, aspirin 81 mg daily, Crestor 20 mg at bedtime, Prinivil 20 mg daily, amlodipin e daily, Tresiba Flextouch 100 units daily, Victoza 1.5 mg subcutaneously at bedtime, Claritin 10 mg daily, metoprolol 25 mg twice daily. Surgical History: Cholecystectomy, left lung lobectomy, lithotripsy and renal stents. Family History: Stroke in mother and diabetes in mother and father. Social History: Denies cigarette smoking, but occasionally drinks alcohol and drinks caffeinated seble erages. Review of Systems: Aside from mentioned, he denies any fevers, chills, nausea, vomiting, myalgias, arthralgias, rash, he adache, weight change. No psychiatric or gastrointestinal complaints. Neurological: Aside from the left facial droop, no other deficits. Physical Examination: Vital Signs: Blood pressure 190/90, pulse 85, respiratory rate of 16, temperature 97.3, oxygen satur ation 95%. Earlier blood pressure was 160/90 weight , height 5 feet 11 inches, BMI 32. General: Mr. Cobb oropharynx is pink and moist. Neck: Supple. Chest: Clear. Heart: Regular. Extremities: Show no edema or cyanosis. Neurological: He has decreased left nasolabial fold noted compared to the right side. Th ere is shows symmetric. Facial sensation intact to light touch, temperature bilaterally. Hearing intact bilaterally. Tongue and palate are in the midline. Shoulder shrug is full and 5/5. Motor examination, he has had surgery in the right hand and some pain on the left, but has full stre ngth proximally and distally upper extremities and lower extremity. His coordination intact in upper lower extremity. Gait good stance, right arm swing, reflexes depressed and symmetric in upper and l ower extremities. Laboratory Studies: Blood count with differential is unremarkable. Coagulation panel is normal. Ch emistries show glucose elevated to 175. Hemoglobin A1c 9.5, triglycerides 178, total cholesterol 277 , LDL cholesterol 200, HDL cholesterol 441. His cholesterol to HDL ratio of 6.76, TSH 1.08, free T4 1.34, creatinine 0.94. His echocardiogram showed ejection fraction 76% with diastolic dysfunction. Chest x-ray shows underinflated lungs. Assessment: Mr. Cobb is a 49-year-old patient with multiple stroke risk factors including hypert ension, diabetes mellitus, dyslipidemia, and cardiovascular risk factors of dehydration and uncontrol led diabetes. He did have symptoms consistent with a possible transient ischemic attack. However, t he patient did not have any hand finding simultaneously and did have the appearance of a Hawthorne's palsy more than a central stroke. He, however, given his strong risk factors for stroke, he should be lanny ated as though with transient ischemic attack and he is treated as such with aspirin, Plavix folic ac id, high-dose statin, and some antihypertensive but just to keep permissive hypertension for the next 3 days. Also, he should receive some acyclovir as very likely that his facial droop, may be related to Hawthorne's palsy. After his discharge, follow up in Dr. Bates's clinic in 1 month. He may have a n MRI at some point once the machine is back up working hopefully by the end of the next week. JUDI Voice ID: [id number] Report ID: [id number]
[2020-05-21] MEDS ORDERED: lisinopriL 20 MG TAB PO SCH (08:00)
[2020-05-21] MEDS ORDERED: AMLODIPINE 2.5 MG TAB PO SCH (09:00)
== END 2020-05-20 17:26 | disposition home or self-care (01) ==
LOC: ER 13:01 → ERHOLD 17:07 → INTOOBSV 17:07 → 2ND 22:36
PROVIDERS: ADMIT Family Medicine; ATTEND Family Medicine
DX: G51.0 Bell's palsy (principal); E11.9 Type 2 diabetes mellitus without complications; E78.5 Hyperlipidemia, unspecified; I11.0 Hypertensive heart disease with heart failure; I50.30 Unspecified diastolic (congestive) heart failure; I65.23 Occlusion and stenosis of bilateral carotid arteries; Z79.4 Long term (current) use of insulin; Z79.82 Long term (current) use of aspirin; Z79.02 Long term (current) use of antithrombotics/antiplatelets; Z79.899 Other long term (current) drug therapy; Z96.41 Presence of insulin pump (external) (internal); Z11.59 Encounter for screening for other viral diseases
CPT/HCPCS: 93306; 85025 ×2; 80048 ×2; 36415; 83735; 85610; 80061; 82947 ×4; 85730; 84443; 83036; 84439; 70450; 71045; 93880; 92523; 96375; 96374; 99284; U0002; J0360; J1650; J2270; J2405 ×2; G0378 ×2